=== PATIENT | female | born 1955 | race Hispanic/Latino ===

== ENCOUNTER → 2018-09-13 | Outpatient (CLI) | payer MEDICARE ==
[~2018-09-13] MED LIST: IOPAMIDOL 370 MG/ML 200 ML INFUS..BTL INJ ONE; SODIUM CHLORIDE 0.9% 50ML 50 ML ONE
[2018-09-13 14:05] LABS: BLOOD UREA NITROGEN 12 mg/dL (7-26); BUN/CREATININE RATIO 18 (6-25); CREATININE, SERUM 0.67 mg/dL (0.57-1.11); EST GLOMERULAR FILTRATION RATE > 60 ML/MIN (60-)
--- NOTE | 2018-09-13 16:37 | Diagnostic Imaging Report ---
EXAM: CT Abdomen and Pelvis WITH contrast INDICATION: Left upper quadrant abdominal pain. COMPARISON: None. TECHNIQUE: Abdomen and pelvis were scanned utilizing a multidetector helical scanner from the lung base to the pubic symphysis after administration of IV contrast. Coronal and sagittal reformations were obtained. Routine protocol was performed. Scan was performed when during portal venous phase. IV CONTRAST: 100 cc of Isovue 370. ORAL CONTRAST: Water COMPLICATIONS: None RADIATION DOSE: Total DLP: 204 mGy*cm Dose modulation, iterative reconstruction, and/or weight based adjustment of the mA/kV was utilized to reduce the radiation dose to as low as reasonably achievable. FINDINGS: LINES and TUBES: None. LOWER THORAX: Fat-containing right Bochdalek hernia. HEPATOBILIARY: Diffuse mild hepatic steatosis. No evidence of solid mass. Calcified granuloma in the right hepatic lobe. No biliary ductal dilation. GALLBLADDER: No radio-opaque stones or sludge. No wall thickening. SPLEEN: No splenomegaly. PANCREAS: No focal masses or ductal dilatation. ADRENALS: Indeterminant 1.2 cm right adrenal nodule (series 2, image 17; 111 HU). KIDNEYS/URETERS: Kidneys enhance symmetrically. No evidence of hydronephrosis, solid mass, or stone. Indeterminant 1 cm left upper pole renal hypodensity (series 2, image 21; 45 HU) and a 1.4 cm right mid pole hypodensity (series 301, image 58; 27 HU). GI TRACT: No evidence of wall thickening or distension. Appendix is normal. PELVIC ORGANS/BLADDER: Unremarkable. LYMPH NODES: No lymphadenopathy. VESSELS: Unremarkable. PERITONEUM / RETROPERITONEUM: No free air or fluid. BONES AND SOFT TISSUES: Unremarkable. CONCLUSION: Diffuse mild hepatic steatosis. Indeterminant bilateral renal hypodense lesions and right adrenal nodule. Suggest adrenal and renal protocol CT or MRI for further evaluation. Signed by: Dr. Zeina Dubois MD on 09/13/2018 4:34 PM
== END ==
LOC: CT 13:18
PROVIDERS: ATTEND Family Medicine
DX: R10.12 Left upper quadrant pain (principal)
CPT/HCPCS: 36415; 74177; 82565; 84520; Q9967

== ENCOUNTER → 2018-09-26 | Outpatient (CLI) | payer MEDICARE ==
[~2018-09-26] MED LIST changes: +GADOBENATE DIMEGLUMINE 1 ML IV ONE; -IOPAMIDOL 370 MG/ML 200 ML INFUS..BTL INJ ONE; -SODIUM CHLORIDE 0.9% 50ML 50 ML ONE
--- NOTE | 2018-09-27 06:06 | Diagnostic Imaging Report ---
ADDENDUM #1 Addendum: 10 cc of intravenous gadolinium were administered. Signed by: Dr. Sulaiman Rothman M.D. on 09/27/2018 6:11 AM ORIGINAL REPORT EXAMINATION: MRI Abdomen with and without contrast. TECHNIQUE: Axial T1 nonfat sat in and out of phase, axial T2 fat sat, coronal T2 nonfat sat, axial DWI and ADC MR images of the abdomen were obtained before and after the administration of cc of gadolinium. Axial T1 fat sat GRE dynamic images in precontrast, arterial, venous and delayed phases were obtained. CLINICAL HISTORY:Blood in urine, indeterminate renal lesions on CT COMPARISON: CT abdomen and pelvis 09/13/2018 FINDINGS: Exam limited by breathing motion artifact. LOWER THORAX: Unremarkable. LIVER: The hepatic contour is normal.. Diffuse signal dropout of the hepatic parenchyma on out of phase images consistent with moderate steatosis . No focal hepatic lesions. BILIARY: No intra or extrahepatic ductal dilatation or filling defect. The gallbladder has a normal appearance. PANCREAS: No mass or ductal dilatation. SPLEEN: No splenomegaly. ADRENALS: 1.2 x 0.8 cm nodule in the right adrenal gland (series 10, image 59). No significant signal dropout is noted on out of phase images. The left adrenal gland is unremarkable.. KIDNEYS: No hydronephrosis or solid enhancing mass in the imaged portion of the kidneys. 1.5 x 1.1 cm T1 hypointense, T2 hyperintense well-circumscribed lesion in the interpolar right kidney (series 6, image 22), which shows no enhancement on postcontrast images (series 100, image 71). No restricted diffusion. 1.1 x 1.0 cm T1 hypointense, T2 hyperintense lesion in the left superior pole (series 6, image 17), which shows no enhancement on postcontrast images (series 100, image 65). No restricted diffusion. PERITONEUM / RETROPERITONEUM: No upper abdominal free fluid. GI TRACT: The visualized bowel shows no dilation or obstruction. LYMPH NODES: No upper abdominal lymphadenopathy. VESSELS: The celiac trunk, superior and inferior mesenteric and bilateral renal arteries are patent. The portal, superior mesenteric and splenic veins are patent. No collateral circulation. BONES AND SOFT TISSUES: No abnormal bone marrow signal. No soft tissue abnormalities. IMPRESSION: 1. Previously visualized bilateral renal cystic lesions are consistent with simple cysts. No further follow-up or diagnostic imaging is indicated. 2. 1.2 cm nodule in the right adrenal gland which remains indeterminate. No significant signal dropout is noted on out of phase images, suggesting a lipid poor adenoma. This may be further evaluated with CT abdomen with adrenal mass protocol. 3. Moderate hepatic steatosis (calculated hepatic fact fraction 19.4%, calculated hepatic fat percentage 17.3%, consistent with moderate steatosis). Signed by: Dr. Sulaiman Rothman M.D. on 09/27/2018 6:03 AM
== END ==
LOC: MRI 09:50
PROVIDERS: ATTEND Family Medicine
DX: N28.89 Other specified disorders of kidney and ureter (principal)
CPT/HCPCS: 74183; A9577

== ENCOUNTER → 2019-02-25 | Outpatient (CLI) | payer MEDICARE ==
--- NOTE | 2019-02-25 15:25 | Diagnostic Imaging Report ---
MRI SPINE LUMBAR WO HISTORY: Low back and bilateral leg pain COMPARISON: CT of the abdomen and pelvis 09/13/2018 TECHNIQUE: Sagittal T1, sagittal T2, sagittal STIR, axial T2, coronal T2, and axial proton density weighted images of the lumbar spine were obtained without contrast. DISCUSSION: Number of non-rib bearing lumbar vertebral bodies: 5. Alignment: Normal lordosis. No scoliosis. Vertebrae: Small nodular T1/T2 hyperintense lesion in the left L5 vertebral body is a benign hemangioma. Otherwise, no fractures, infection or neoplasm. Conus medullaris: Normal, ends at L1-L2 Cauda equina: No masses or arachnoiditis. Posterior paraspinal muscles: Well preserved. No signal abnormalities. Soft tissues: A few small bilateral round T2 hyperintense renal lesions are likely cysts. Mild multilevel lumbar disc degeneration is present. There are questionable small multilevel posterior annular fissures, most prominent at L4-L5. T12-L1: Patent canal and foramina. L1-L2: Disc bulge without significant canal or foraminal stenosis. L2-L3: Disc bulge without significant canal or foraminal stenosis. L3-L4: Mild canal stenosis due to disc bulge and ligamentum flavum thickening. No significant foraminal stenosis. L4-L5: Mild canal stenosis due to disc bulge and ligamentum flavum thickening. No significant foraminal stenosis. L5-S1: Mild canal stenosis due to disc bulge and ligamentum flavum thickening. Mild bilateral foraminal stenoses due to disc bulge and facet arthrosis. IMPRESSION: 1. Mild multilevel lumbar disc degeneration. 2. Mild degenerative canal stenoses from L3-L4 to L5-S1. 3. Mild bilateral degenerative foraminal stenoses at L5-S1. Signed by: Dr. Howie Brian M.D. on 02/25/2019 3:21 PM
== END ==
LOC: MRI 13:44
PROVIDERS: ATTEND Family Medicine
DX: M54.16 Radiculopathy, lumbar region (principal)
CPT/HCPCS: 72148

== ENCOUNTER → 2020-03-02 | Outpatient (CLI) | payer MEDICARE | LOC: CT 12:41 | PROVIDERS: ATTEND Family Medicine | DX: R10.84 Generalized abdominal pain (principal) | CPT/HCPCS: 74177 ==

== ENCOUNTER → 2023-12-01 | Outpatient (REF) | payer MEDICARE | LOC: CT 15:13 | PROVIDERS: ATTEND Family Medicine | DX: F07.81 Postconcussional syndrome (principal) | CPT/HCPCS: 70450 ==